=== PATIENT | female | born 1975 | race Caucasian/White ===

== ENCOUNTER → 2023-03-15 09:48 | Outpatient (BNVA) | payer MEDICAID, SELFPAY | PROVIDERS: Referring Provider Nurse Practitioner Family; Visit Provider Physician Assistant | DX: M54.9 Dorsalgia, unspecified (principal); M54.50 Low back pain, unspecified; M79.604 Pain in right leg; M79.605 Pain in left leg | CPT/HCPCS: 72110; 99203 ==

== ENCOUNTER 2023-07-05 12:55 | Outpatient (CLI) | payer MEDICAID, SELFPAY ==
--- NOTE | 2023-07-05 13:02 | MR_ITS ---
WS: [id number] MRI LUMBAR SPINE NONCONTRAST TECHNIQUE: Sagittal T1, T2 and STIR imaging. Axial T1 and T2 imaging. CLINICAL INFORMATION: INCONTINENCE W/O SENSORY AWARENESS/BACK PAIN W/RADICULOPATHY COMPARISON: None. FINDINGS: Counting performed from the craniocervical junction. 4 lumbar type vertebral bodies. L5 is sacralized . Recommend plain film correlation prior to surgical intervention. T12-L1: Moderate facet arthropathy. Spinal canal and foramen are patent. L1-L2: Moderate facet arthropathy. Spinal canal and foramen are patent. L2-L3: Mild annular bulging. Moderate facet arthropathy. Spinal canal and foramen are patent. L3-L4: Mild annular bulging. Moderate facet arthropathy. Mild LEFT greater than RIGHT bony foraminal narrowing. Spinal canal is patent. L4-L5: Mild annular bulge with osteophytic ridging. Moderate facet arthropathy. Mild RIGHT foraminal narrowing. L5-S1: L5 is sacralized. Visualized pelvic bony structures: Normal. Paravertebral soft tissues: Normal. Shallow central protrusion on the frame bender imaging at C5-6. IMPRESSION: 1. Counting performed from the craniocervical junction. 4 lumbar type vertebral bodies. L5 is sacral ized. Recommend plain correlation correlation prior to surgical intervention 2. Moderate facet arthropathy L1-L4 worse at L4-5. 3. Mild RIGHT L4-5 bony foraminal narrowing encroaches on the exiting RIGHT L4 nerve root. 4. Mild LEFT L3-4 foraminal narrowing. 5. Mild narrowing of the thecal sac at L2-L3 and L3-L4 due to facet arthropathy and prominent epidur al fat.
--- NOTE | 2023-07-05 14:07 | MM_ITS ---
WS: [id number] BILATERAL SCREENING DIGITAL TOMOSYNTHESIS MAMMOGRAM WITH CAD HISTORY: SCREENING COMPARISON: None available. Bilateral CC and MLO views with tomosynthesis and synthetic mammography submitted. Computer aided det ection analyzed. Breast composition: There are scattered areas of fibroglandular density. No suspicious masses, microc alcifications or architectural distortion. IMPRESSION: MM/[place] [id number] BI-RADS: 1-Negative FOLLOW UP: 1 Year Follow-up
== END 2023-07-05 12:56 | disposition home or self-care (01) ==
LOC: RAD 12:58
PROVIDERS: Visit Provider Nurse Practitioner Family
DX: M47.26 Other spondylosis with radiculopathy, lumbar region (principal); N39.42 Incontinence without sensory awareness; M54.16 Radiculopathy, lumbar region; Z12.31 Encounter for screening mammogram for malignant neoplasm of breast
CPT/HCPCS: 72148; 77063; 77067

== ENCOUNTER 2023-07-09 13:38 | Emergency (ER) | payer MEDICAID, SELFPAY ==
[2023-07-09 13:45] VITALS: BP 120/76; PULSE 99; RESP 17; TEMP 36.6; O2SAT 97; BMI 39.2
--- NOTE | 2023-07-09 15:36 | ECG_ITS ---
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 Measurements Intervals [place] Rate: 98 P: 60 ND: 158 QRS: -1 QRSD: 90 T: 32 QT: 351 QTc: 449 Interpretive Statements SINUS RHYTHM POSSIBLE LEFT ATRIAL ENLARGEMENT [-0.1mV P-WAVE IN V1/V2] LOW QRS VOLTAGE IN PRECORDIAL LEADS [QRS DEFLECTION < 1.0 mV IN CHEST LEADS] POSSIBLE RIGHT VENTRICULAR CONDUCTION DELAY [RSR (QR) IN V1/V2] POSSIBLE ANTERIOR MYOCARDIAL INFARCTION , PROBABLY OLD [30 ms Q WAVE IN V3/V4, OR R < 0.2 mV IN V4] No previous ECG available for comparison Electronically Signed On 07-09-2023 21:24:34 CDT by Cristiana Willett M.D. [email or web address]
--- NOTE | 2023-07-09 16:02 | XR_ITS ---
WS: [id number] XR chest 1V portable [id number] REASON FOR EXAM: chest pain FINDINGS: No comparison examination. Suboptimal inspiratory effort. Thoracic aorta and heart are within normal limits. No mediastinal or hilar mass. Minimal calcified granulomatous disease bilaterally. Peribronchial cuffing. No definite lung opacity, nodule, or lung mass. No pleural abnormality. The bony thorax is intact without significant focal abnormality. IMPRESSION: Peribronchial cuffing of unknown chronicity. This finding is most often related to small airway disea se and would present as coughing or shortness of breath rather than chest pain. Significance in this patient is uncertain.
[2023-07-09 16:09] LABS: Basophils % 0.2 %; Eosinophils # 0.2 10^3/uL (0.0-0.8); Eosinophils % 1.4 %; Hematocrit 38.4 % (36-47); Lymphocytes # 2.5 10^3/uL (0.8-4.8); Lymphocytes % 22.6 %; Mean Corpuscular HGB Conc 33.3 g/dL (30-55); Mean Corpuscular Hemoglobin 30.9 pg (27-33); Mean Corpuscular Volume 92.8 fl (85-98); Mean Platelet Volume 8.3 fL (7.4-10.4); Monocytes # 0.6 10^3/uL (0.2-0.9); Monocytes % 5.6 %; Neutrophils # 7.74 10^3/uL (1.8-7.7); Neutrophils % 69.9 %; Nucleated Red Blood Cells % 0 %; Platelet Count 268 10^3/cmm (157-399); Red Blood Count 4.14 10^6/uL (3.85-5.65); Red Cell Distribution Width 13.1 % (12.1-15.1); White Blood Count 11.07 10^3/uL (3.29-11.43)
--- NOTE | 2023-07-09 16:09 | W.ED.GENADLT ---
HPI - General Adult General: Chief complaint: Shortness of Breath/Dyspnea Stated complaint: sob, itchy, chest pain Time Seen by Provider: 07/09/23 13:40 Source: patient Mode of arrival: ambulatory Limitations: no limitations History of Present Illness: Patient is a 47-year-old female here for multiple medical complaints. She tells me that she is having chest pain but states I have been having problems with my heart for 4 years . She states approximately 4 years ago she was at a hospital in [place] and told she needed to be hospitalized. Patient states she got anxiety about being admitted and left the emergency department. She states later she was looking at her discharge paperwork and she was given patient instructions regarding congestive heart failure. She states she has never followed up with primary care or weight engineer since that visit. Patient states that she feels swollen everywhere . She denies lower extremity calf pain. She does not complain of PND or orthopnea. She does have shortness of breath with exertion and feels like she fatigues easily. Patient is also complaining of intermittent hot flashes. Unknown when her mother entered menopause. No known thyroid disease. He has not been running fevers. She also has a separate complaint of feeling itchy all over after using a new roll of toilet paper. She never noticed a rash. She states after taking Benadryl all of her pruritus has resolved. Denies lip or tongue swelling. She has no difficulty breathing at rest currently. Onset (ago): unknown (differing chronicity based on complaint) Associated symptoms: Reports chest pain and dyspnea; Deny headache(s), malaise, nausea, rash, palpitations, syncope or vomiting Treatments prior to arrival: other (benadryl) Review of Systems Const: Reports: fatigue and other (hot flashes); Denies: fever(s), chills, body aches or malaise Card: Reports: chest pain, edema (reports she feels swollen everywhere ) and dyspnea on exertion; Denies: palpitations, irregular heart rhythm, lightheadedness, syncope, pre-syncope, orthopnea, leg pain with exertion or acrocyanosis Resp: Reports: dyspnea; Denies: productive cough, non-productive cough, wheezing, pain on inspiration, change in phlegm color, hemoptysis or chest congestion GI: Denies: abdominal pain, nausea, vomiting or diarrhea : Denies: flank pain, dysuria or hematuria Musc: Denies: neck pain, back pain, extremity pain or joint pain Skin/Breast: Reports: pruritus (subsided now after Benadryl); Denies: rash Neuro: Denies: headache(s), numbness in extremities, weakness in extremities, sensory changes, difficulty walking or dizziness Physical Exam Const: COMMON NORMALS: no acute distress, patient oriented x3, no limitations and alert GENERAL APPEARANCE: cooperative NUTRITIONAL APPEARANCE: obese ORIENTATION/CONSCIOUSNESS: Yes awake, Yes oriented to person, Yes oriented to place and Yes oriented to time HENMT: COMMON NORMALS: normocephalic and atraumatic HEAD & SCALP: normal to inspection, normocephalic and atraumatic Eye: COMMON NORMALS: no scleral icterus Neck/C-Spine: COMMON NORMALS: full ROM, no lymphadenopathy, supple, no meningeal signs and no JVD Chest: COMMONS NORMALS: normal inspection of the chest and normal palpation of entire chest wall Resp: COMMON NORMALS: normal respiratory effort and clear to auscultation bilaterally AUSCULTATION: clear to auscultation bilaterally Cardio: COMMON NORMALS: no JVD, regular rate and regular rhythm RATE: regular rate RHYTHM: regular rhythm GI: COMMON NORMALS: Normal to inspection, nondistended, normoactive bowel sounds present, Soft to palpation, non-tender, No hepatosplenomegaly present and no masses PALPATION: Yes Soft to palpation and Yes No hepatosplenomegaly present : COMMON NORMALS: Yes no CVA tenderness BLADDER/KIDNEY EXAM: Yes no CVA tenderness Back/Pelvis: COMMON NORMALS: no CVA tenderness, thoracic and lumbar spine normal to inspection, no thoracic nor lumbar tenderness and thoraco-lumbar ROM normal Extremity: COMMON NORMALS: normal to inspection, full ROM, capillary refill normal, no joint enlargement, no clubbing, cyanosis or edema, no calf tenderness and no pedal edema GENERAL: Yes normal exam except as noted Neuro: MARIE COMA SCALE: document GCS findings [place] coma scale eye opening: Spontaneous [place] coma scale verbal response: Orientated Marie coma scale motor response: Obey commands Marie coma scale total score: 15 COMMON NORMALS: patient oriented x3, moves all extremities, no focal motor deficits, no sensory deficits noted and gait normal SENSORIUM/ORIENTATION: Yes alert, Yes oriented to person, Yes oriented to place and Yes oriented to time MENINGEAL SIGNS: Yes no meningeal signs Skin: COMMON NORMALS: no rashes or lesions noted GENERAL SKIN EXAM: no rashes or lesions noted Course Vital Signs: Vital signs: Vital Signs Temperature 98 F 07/09/23 13:45 Pulse Rate 99 07/09/23 13:45 Respiratory Rate 17 07/09/23 13:45 Blood Pressure 120/76 07/09/23 13:45 Pulse Oximetry 97 07/09/23 13:45 Oxygen Delivery Me thod Room Air 07/09/23 13:45 MDM - General Adult Medical Decision Making Patient here with multiple medical complaints of differing chronicities. She states her chest pain has been present for over 4 years. Her shortness of breath and fatigue has been present for several months as well as her hot flashes. Ultimately she arrives with completely normal vital signs. Her blood work overall is unremarkable. She has mild hypokalemia with a potassium of 3.3. Calcium is mildly low at 8.1. Her troponin is normal. Her EKG shows no ischemic changes. BNP ordered due to her possible PMH of CHF and feeling like she is swollen. It was mildly elevated at 189. Her CXR showing no evidence of fluid overload. It does show some small airway disease. Patient states she does use albuterol and would like a refill of this. TSH is normal. At this time I think patient is stable for discharge from an emergency standpoint. Recommend she follow-up with her primary care provider for further evaluation and treatment. Lab Data 07/09/23 15:50 07/09/23 15:50 Laboratory Results WBC 11.07 10^3/uL (3.29-11.43) 07/09/23 15:50 RBC 4.14 10^6/uL (3.85-5.65) 07/09/23 15:50 Hgb 12.80 g/dL (11.27-16.99) 07/09/23 15:50 Hct 38.4 % (36-47) 07/09/23 15:50 MCV 92.8 fl (85-98) 07/09/23 15:50 MCH 30.9 pg (27-33) 07/09/23 15:50 MCHC 33.3 g/dL (30-55) 07/09/23 15:50 RDW 13.1 % (12.1-15.1) 07/09/23 15:50 Plt Count 268 10^3/cmm (157-399) 07/09/23 15:50 MPV 8.3 fL (7.4-10.4) 07/09/23 15:50 Neut % (Auto) 69.9 % 07/09/23 15:50 Lymph % (Auto) 22.6 % 07/09/23 15:50 [facility] % (Auto) 5.6 % 07/09/23 15:50 Eos % (Auto) 1.4 % 07/09/23 15:50 Baso % (Auto) 0.2 % 07/09/23 15:50 Neut # (Auto) 7.74 10^3/uL (1.8-7.7) H 07/09/23 15:50 Lymph # (Auto) 2.5 10^3/uL (0.8-4.8) 07/09/23 15:50 [facility] # (Auto) 0.6 10^3/uL (0.2-0.9) 07/09/23 15:50 Eos # (Auto) 0.2 10^3/uL (0.0-0.8) 07/09/23 15:50 Baso # (Auto) 0.0 10^3/uL (0.0-0.1) 07/09/23 15:50 Nucleated RBC % (auto) 0 % 07/09/23 15:50 Nucleated RBCs # 0.0 /100WBC 07/09/23 15:50 Sodium 137 mmol/L (136-145) 07/09/23 15:50 Potassium 3.3 mmol/L (3.5-5.1) L 07/09/23 15:50 Chloride 103 mmol/L (98-107) 07/09/23 15:50 Carbon Dioxide 27 mmol/L (22-29) 07/09/23 15:50 Anion Gap 10.3 (5-19) 07/09/23 15:50 BUN 13 mg/dL (6-20) 07/09/23 15:50 Creatinine 0.6 mg/dL (0.5-0.9) 07/09/23 15:50 GFR Calculation 108.1 mL/min (90-130) 07/09/23 15:50 Glucose 85 mg/dL (65-115) 07/09/23 15:50 Calculated Osmolality 283 mOsm/kg (285-295) L 07/09/23 15:50 Calcium 8.1 mg/dL (8.5-10.5) L 07/09/23 15:50 Total Bilirubin 0.3 mg/dL (0.15-1.2) 07/09/23 15:50 AST 19 U/L (0-32) 07/09/23 15:50 ALT 16 U/L (0-33) 07/09/23 15:50 Alkaline Phosphatase 136 U/L (35-105) H 07/09/23 15:50 Troponin T Gen 5 ng/L 6 ng/L (0-10) 07/09/23 15:50 NT-Pro-B Natriuret Pep 189 pg/mL (0-125) H 07/09/23 15:50 Total Protein 5.8 g/dL (6.6-8.7) L 07/09/23 15:50 Albumin 3.7 g/dL (3.5-5.2) 07/09/23 15:50 Globulin 2.1 g/dL (1.3-4.6) 07/09/23 15:50 TSH 0.81 uIU/mL (0.27-4.20) 07/09/23 15:50 All radiology interpretation(s) finalized by discharge Discharge Plan Discharge Patient Disposition: Home Clinical Impression: Multiple complaints, Hypokalemia, Chronic chest pain Dyspnea Qualifiers: Dyspnea type: dyspnea on exertion Qualified Code(s): R06.09 - Other forms of dyspnea Condition: Stable Prescriptions: Continued albuterol sulfate 90 mcg/actuation HFA aerosol inhaler 1 inh INHALATION Q6H PRN (Reason: Shortness Of Breath) Qty: 6.7 0RF No Action prazosin 1 mg capsule See Rx Instructions .ROUTE .COMPLEX Rx Instructions: TAKE 1 CAPSULE BY MOUTH AT BEDTIME, MAY INCREASE TO 2 CAPSULES IN 1 WEEK IF not dizzy lamotrigine 25 mg tablet See Rx Instructions .ROUTE .COMPLEX Rx Instructions: TAKE 1 TABLET BY MOUTH EVERY DAY FOR 2 WEEKS, THEN TAKE 2 TABLETS BY MOUTH EVERY DAY FOR 2 WEEKS propranolol 10 mg tablet 10 mg PO BID baclofen 10 mg tablet 10 mg PO BID triamcinolone acetonide 0.1 % ointment See Rx Instructions .ROUTE .COMPLEX Rx Instructions: APPLY A SMALL AMOUNT TO AFFECTED AREA TWICE A DAY FOR 2 WEEKS AT A TIME, THEN STOP FOR 2 WEEKS risperidone 0.5 mg tablet 0.5 mg PO BID PRN (Reason: Panic Attack(S)) Discharge Orders: Discharge ED (Routine); Ordered 07/09/23 Ordered By: Francisca Estevez Referrals: Alecia Rae [Primary Care Provider] - Activity Restrictions/Additional Instructions: As we discussed please follow-up with your primary care provider for further evaluation of your symptoms. Coding Level of Care Code ED Diamond Setter for Charis Ferrera
[2023-07-09 16:32] LABS: Troponin T (5th) Once 6 ng/L (0-10)
[2023-07-09 16:42] LABS: Alanine Aminotransferase 16 U/L (0-33); Albumin Level 3.7 g/dL (3.5-5.2); Alkaline Phosphatase 136 U/L (35-105); Anion Gap 10.3 (5-19); Aspartate Amino Transferase 19 U/L (0-32); Blood Urea Nitrogen 13 mg/dL (6-20); Calcium 8.1 mg/dL (8.5-10.5); Carbon Dioxide 27 mmol/L (22-29); Chloride 103 mmol/L (98-107); Globulin 2.1 g/dL (1.3-4.6); Glomerular Filtration Rate 108.1 mL/min (90-130); Glucose 85 mg/dL (65-115); NT Pro B Type Natriuretic Pept 189 pg/mL (0-125); Osmolality Calculated 283 mOsm/kg (285-295); Potassium 3.3 mmol/L (3.5-5.1); Sodium 137 mmol/L (136-145); Thyroid Stimulating Hormone 0.81 uIU/mL (0.27-4.20); Total Bilirubin 0.3 mg/dL (0.15-1.2); Total Protein 5.8 g/dL (6.6-8.7)
[2023-07-09] MEDS: potassium chloride ER 20 mEq Tablet 40 MEQ PO (17:02)
[2023-07-09 17:06] VITALS: BP 113/82; PULSE 96; O2SAT 98
== END 2023-07-09 17:04 | disposition home or self-care (01) ==
PROVIDERS: Emergency Provider Physician Assistant; PCP Emergency Medicine
DX: G89.29 Other chronic pain (principal); R07.9 Chest pain, unspecified; R06.09 Other forms of dyspnea
CPT/HCPCS: 71045; 80053; 83880; 84443; 84484; 85025; 93005; 99285

== ENCOUNTER 2023-10-30 13:20 | Outpatient (CLI) | payer MEDICAID, SELFPAY ==
--- NOTE | 2023-10-30 13:30 | USCV_ITS ---
Galo Yulia Age: 48 Gender: F : 1975 Exam Date: 10/30/2023 14:08 Ordering Phys: Lisandra Rae TRAIN EXAMINER TRAIN EXAMINER Technologist: Socorro Martínez Exam Location: [facility] – [place] Indication: dyspnea BP: / HR: 89 Rhythm: Sinus Technical Quality: Adequate MEASUREMENTS (Male / Female) Normal Values 2D ECHO LV Diastolic Diameter PLAX 4.2 cm 4.2 - 5.9 / 3.9 - 5.3 cm LV Systolic Diameter PLAX 2.3 cm LV Chamber Size 2.9 cm IVS Diastolic Thickness 0.8 cm 0.6 - 1.0 / 0.6 - 0.9 cm IVS Systolic Thickness 1.5 cm LVPW Diastolic Thickness 1.2 cm 0.6 - 1.0 / 0.6 - 0.9 cm LVPW Systolic Thickness 1.6 cm RV Chamber Size 3.4 cm LVOT Diameter 2.0 cm LV Ejection Fraction 2D Teich 78.0 % LV Ejection Fraction MOD 2C 53.1 % LV Ejection Fraction 2C AL 52.9 % LA Diameter 3.0 cm LA Width 2.7 cm LA Height 4.3 cm RA Width 3.4 cm RA Height 3.8 cm Aorta at Sinotubular Diameter 2.8 cm IVC Diameter 1.6 cm M-MODE Aortic Annulus Diameter 2.8 cm LA Ao Ratio MM 1.4 MV E Point Septal Separation 0.3 cm DOPPLER AV Peak Velocity 131.7 cm/s LVOT Peak Velocity 80.0 cm/s AV Area Cont Eq vti 2.1 cm squared AV Area Cont Eq pk 2.0 cm squared MV Area PHT 4.9 cm squared Mitral E to A Ratio 1.1 MV E' Velocity 43.5 cm/s Mitral E to MV E' Ratio 7.3 Mitral E to LV E' Lateral Ratio 6.9 Mitral E to LV E' Septal Ratio 8.0 TR Peak Velocity 207.1 cm/s TR Peak Gradient 17.2 mmHg TR Mean Velocity 140.5 cm/s TR Mean Gradient 9.5 mmHg TR Velocity Time Integral 43.7 cm TV Peak E Velocity 67.0 cm/s Right Atrial Pressure 3.0 mmHg Pulmonary Artery Systolic Pressu 20.2 mmHg RV Acceleration Time 0.2 s RV Ejection Time 0.3 s RV AcT/ET 0.6 FINDINGS Left Ventricle Left ventricle is normal size. LV systolic function is normal with EF of 60 to 65%. No regional wall motion abnormalities are seen. Right Ventricle Normal in size and function Right Atrium Normal in size Left Atrium Normal in size Mitral Valve Structurally normal valve. Mild mitral regurgitation. Aortic Valve Structurally normal aortic valve. No significant stenosis or regurgitation. Tricuspid Valve Trace tricuspid regurgitation. Pulmonary artery systolic pressure is normal. Pulmonic Valve Not well visualized. Pericardium Normal Aorta Normal in size IVC Appears to be normal CONCLUSIONS LV systolic function is normal with EF of 60 to 65%. Mild mitral regurgitation Trace tricuspid regurgitation No comparison studies are available. Danny Johnson MD (Electronically Signed) Final Date: 14 November 2023 17:27 S
== END 2023-10-30 13:21 | disposition home or self-care (01) ==
LOC: RAD 13:20
PROVIDERS: PCP Emergency Medicine; Visit Provider Nurse Practitioner Family
DX: R06.00 Dyspnea, unspecified (principal); I34.0 Nonrheumatic mitral (valve) insufficiency
CPT/HCPCS: 93306

== ENCOUNTER 2023-11-07 11:29 | Outpatient (CLI) | payer MEDICAID, SELFPAY ==
[2023-11-07 11:39] VITALS: PULSE 115; RESP 20; O2SAT 99
[2023-11-07] MEDS: albuterol 2.5 mg/3 mL Neb INHALATION (11:39)
[2023-11-07 11:43] VITALS: PULSE 110
== END 2023-11-07 11:30 | disposition home or self-care (01) ==
LOC: RT 11:30
PROVIDERS: PCP Emergency Medicine; Visit Provider Nurse Practitioner Family
DX: R06.09 Other forms of dyspnea (principal); Z72.0 Tobacco use; R94.2 Abnormal results of pulmonary function studies
CPT/HCPCS: 94060; J7613

== ENCOUNTER 2024-01-10 17:20 | Emergency (ER) | payer MEDICAID, SELFPAY ==
[2024-01-10 17:36] VITALS: BP 96/61; PULSE 97; RESP 18; TEMP 36.2; O2SAT 99
[2024-01-10 18:55] LABS: Basophils # 0.1 10^3/uL (0.0-0.1); Basophils % 0.5 %; Eosinophils # 0.2 10^3/uL (0.0-0.8); Eosinophils % 2.1 %; Hematocrit 44.8 % (36-47); Lymphocytes # 4.1 10^3/uL (0.8-4.8); Lymphocytes % 39.9 %; Mean Corpuscular HGB Conc 32.8 g/dL (30-55); Mean Corpuscular Hemoglobin 30.8 pg (27-33); Mean Corpuscular Volume 93.7 fl (85-98); Mean Platelet Volume 8.1 fL (7.4-10.4); Monocytes # 0.8 10^3/uL (0.2-0.9); Monocytes % 7.7 %; Neutrophils # 5.04 10^3/uL (1.8-7.7); Neutrophils % 49.4 %; Nucleated Red Blood Cells % 0 %; Platelet Count 307 10^3/cmm (157-399); Red Blood Count 4.78 10^6/uL (3.85-5.65); Red Cell Distribution Width 13.1 % (12.1-15.1)
[2024-01-10 19:14] LABS: Alanine Aminotransferase 20 U/L (0-33); Albumin Level 4.2 g/dL (3.5-5.2); Alkaline Phosphatase 148 U/L (35-105); Aspartate Amino Transferase 18 U/L (0-32); Blood Urea Nitrogen 10 mg/dL (6-20); Calcium 8.7 mg/dL (8.5-10.5); Carbon Dioxide 26 mmol/L (22-29); Chloride 103 mmol/L (98-107); Creatinine Clr Calc Pharmacy 107.3082; Globulin 2.7 g/dL (1.3-4.6); Glomerular Filtration Rate 90.1 mL/min (90-130); Glucose 73 mg/dL (65-115); Lipase 21 U/L (13-60); Osmolality Calculated 284 mOsm/kg (285-295); Sodium 138 mmol/L (136-145); Total Bilirubin 0.8 mg/dL (0.15-1.2); Total Protein 6.9 g/dL (6.6-8.7)
--- NOTE | 2024-01-10 20:25 | W.ED.ABDPA2 ---
HPI - Abdominal Pain General: Chief Complaint: Abdominal Pain Stated Complaint: abp pain Time Seen by Provider: 01/10/24 20:23 History of Present Illness: 48-year-old female presents emergency department with complaints of upper abdominal tightness has been ongoing for the previous 3 days. She states her pain is a vague cramping type pain that is a 10 out of 10. She states she feels like she is constantly nauseated and has had 2 episodes of vomiting and some intermittent diarrhea. She states she was recently completed antibiotic regimen for pneumonia. She denies any previous abdominal surgeries. She states that nothing seems to make her pain better and eating makes her pain worse. Associated Symptoms: Reports nausea and vomiting Related Data: Date of Last Menstrual Period: 11/07/23 Review of Systems General: Reports: 10 or more systems reviewed and unremarkable except in HPI and below GI: Reports: abdominal pain, nausea and vomiting [facility] ED PFS: Medical History (Updated 01/10/24 @ 22:40 by Rajiv Rudd MD) SOB (shortness of breath) Chest pain Bipolar 1 disorder Depression Family History Grandmother Congenital heart disease Father CAD (coronary artery disease) Social History Smoking and tobacco/nicotine status: current some day tobacco/nicotine user cigarettes Packs smoked per day: 0.5 Years cigarettes smoked: 25 Alcohol intake: current Alcohol intake frequency: 0-2 Drinks per Day Substance/Drug Use: current Female Reproductive History: Date of last menstrual period: 11/07/23 Physical Exam Narrative: EXAM NARRATIVE: Constitutional: the patient appears well nourished and of normal development. Vital signs as documented. No acute distress at present. Alert and oriented-to person, place, time and situation. Head, eyes, ears, nose, mouth, throat: Normocephalic, atraumatic. Pupils-equal, round, reactive to light. No scleral icterus. Normal-appearing external ears. Normal appearing nasal turbinates, no drainage. No obvious oral lesions, posterior oropharynx without erythema or exudates. Neck: Supple, trachea is midline, no lymphadenopathy, no jugular venous distension, thyromegaly, or carotid bruits. Carotid upstrokes are brisk bilaterally. Lungs: clear to auscultation to all lung haile. Symmetrical rise and fall of chest, no obvious signs of increased work of breathing at present. Cardiac: Regular rate and rhythm, positive S1, S2. No murmurs, rubs or gallops that I can appreciate Abdomen: Soft, non-tender to palpation, normal active bowel sounds to all quadrants. No palpable masses, no organomegaly and abdominal bruits. Extremities: 2+ pulses in the upper extremities that are equal bilaterally, 2+ pulses in the lower extremities that are equal bilaterally. Non-edematous. Moves all extremities well, sensation to all extremities are noted. Skin: Warm, dry, intact. Course Vital Signs: Vital signs: Vital Signs Temperature 97.2 F L 01/10/24 17:36 Pulse Rate 97 01/10/24 17:36 Respiratory Rate 18 01/10/24 17:36 Blood Pressure 96/61 01/10/24 17:36 Pulse Oximetry 99 01/10/24 17:36 Oxygen Delivery Me thod Room Air 01/10/24 17:36 MDM - Abdominal Pain Medical Decision Making Physical exam completed and documented, I will obtain a CBC and CMP as well as a CT scan of her abdomen pelvis given the patient's additional complaints of pain in the epigastric region. I will provide her Toradol and pain medication as well as antinausea medication and obtain a urinalysis. Reevaluation of the patient received her pain medication shows significant improvement in control of her pain. I did discuss the CT scan findings with her to include enteritis. I discussed supportive care and treatment as well as recommended follow-up with her PCP. Medical Records I reviewed the patient's medical records. Lab Data I reviewed the patient's lab results. 01/10/24 18:33 01/10/24 18:33 Labs/Radiology: Radiology Impressions Abdomen/Pelvis CT 01/10/24 21:39 IMPRESSION: 1. Prominent fluid in the small bowel without dilation may reflect an enteritis. 2. Right middle lobe 6.6 mm pulmonary nodule incompletely visualized, dedicated chest CT advised for further evaluation. 3. IUD in the uterine cavity. 4. Diverticulosis without diverticulitis. 5. Right ovary 2.2 cm cyst, likely follicular. Laboratory Results WBC 10.20 10^3/uL (3.29-11.43) 01/10/24 18:33 RBC 4.78 10^6/uL (3.85-5.65) 01/10/24 18: Hgb 14.70 g/dL (11.27-16.99) 01/10/24 18: Hct 44.8 % (36-47) 01/10/24 18: MCV 93.7 fl (85-98) 01/10/24 18: MCH 30.8 pg (27-33) 01/10/24 18: MCHC 32.8 g/dL (30-55) 01/10/24 18: RDW 13.1 % (12.1-15.1) 01/10/24 18: Plt Count 307 10^3/cmm (157-399) 01/10/24 18: MPV 8.1 fL (7.4-10.4) 01/10/24 18: Neut % (Auto) 49.4 % 01/10/24 18: Lymph % (Auto) 39.9 % 01/10/24 18: Imperial % (Auto) 7.7 % 01/10/24 18: Eos % (Auto) 2.1 % 01/10/24 18: Baso % (Auto) 0.5 % 01/10/24: Neut # (Auto) 5.04 10^3/uL (1.8-7.7) 01/10/24 18: Lymph # (Auto) 4.1 10^3/uL (0.8-4.8) 01/10/24 18: Imperial # (Auto) 0.8 10^3/uL (0.2-0.9) 01/10/24 18: Eos # (Auto) 0.2 10^3/uL (0.0-0.8) 01/10/24 18: Baso # (Auto) 0.1 10^3/uL (0.0-0.1) 01/10/24: Nucleated RBC % (auto) 0 % 01/10/24 18: Nucleated RBCs # 0.0 /100WBC 01/10/24 18: Sodium 138 mmol/L (136-145) 01/10/24 18: Potassium 4.0 mmol/L (3.5-5.1) 01/10/24 18:33 Chloride 103 mmol/L (98-107) 01/10/24 18:33 Carbon Dioxide 26 mmol/L (22-29) 01/10/24 18:33 Anion Gap 13.0 (5-19) 01/10/24 18:33 BUN 10 mg/dL (6-20) 01/10/24 18:33 Creatinine 0.7 mg/dL (0.5-0.9) 01/10/24 18:33 GFR Calculation 90.1 mL/min (90-130) 01/10/24 18:33 Glucose 73 mg/dL (65-115) 01/10/24 18:33 Calculated Osmolality 284 mOsm/kg (285-295) L 01/10/24 18:33 Calcium 8.7 mg/dL (8.5-10.5) 01/10/24 18:33 Total Bilirubin 0.8 mg/dL (0.15-1.2) 01/10/24 18:33 AST 18 U/L (0-32) 01/10/24 18:33 ALT 20 U/L (0-33) 01/10/24 18:33 Alkaline Phosphatase 148 U/L (35-105) H 01/10/24 18:33 Total Protein 6.9 g/dL (6.6-8.7) 01/10/24 18:33 Albumin 4.2 g/dL (3.5-5.2) 01/10/24 18:33 Globulin 2.7 g/dL (1.3-4.6) 01/10/24 18:33 Lipase 21 U/L (13-60) 01/10/24 18:33 HCG, Qual Negative (Negative) 01/10/24 20:20 Urine Color Light yellow (Yellow) 01/10/24 20:20 Urine Appearance Sl hazy (CLEAR) A 01/10/24 20:20 Urine pH 5 (5-7) 01/10/24 20:20 Ur Specific [place] 1.005 (1.005-1.030) 01/10/24 20:20 Urine Protein Neg (Negative) 01/10/24 20:20 Urine Glucose (UA) Norm (Normal) 01/10/24 20:20 Urine Ketones Negative (Negative) 01/10/24 20:20 Urine Blood Neg (Negative) 01/10/24 20:20 Urine Nitrate Negative (Negative) 01/10/24 20:20 Urine Bilirubin Neg (Negative) 01/10/24 20:20 Urine Urobilinogen Neg mg/dL (Negative) 01/10/24 20:20 Ur Leukocyte Esterase Negative (Negative) 01/10/24 20:20 Urine RBC None /hpf (0-2) 01/10/24 20:20 Urine WBC 0-4 /hpf (0-5) H 01/10/24 20:20 Ur Squamous Epith Cells 5-10 /hpf (0-5) H 01/10/24 20:20 Amorphous Sediment Not Reportable 01/10/24 20:20 Urine Bacteria Trace /hpf (NONE) 01/10/24 20:20 All radiology interpretation(s) finalized by discharge Discharge Plan Discharge Patient Disposition: Home Clinical Impression: Gastroenteritis, Abdominal pain Condition: Stable Prescriptions: New naproxen 500 mg tablet 500 mg PO Q12H PRN (Reason: pain) Qty: 20 0RF simethicone 180 mg capsule 180 mg PO BID PRN (Reason: abdominal distention) Qty: 14 0RF No Action prazosin 1 mg capsule See Rx Instructions .ROUTE .COMPLEX Rx Instructions: TAKE 1 CAPSULE BY MOUTH AT BEDTIME, MAY INCREASE TO 2 CAPSULES IN 1 WEEK IF not dizzy lamotrigine 25 mg tablet See Rx Instructions .ROUTE .COMPLEX Rx Instructions: TAKE 1 TABLET BY MOUTH EVERY DAY FOR 2 WEEKS, THEN TAKE 2 TABLETS BY MOUTH EVERY DAY FOR 2 WEEKS propranolol 10 mg tablet 10 mg PO BID baclofen 10 mg tablet 10 mg PO BID albuterol sulfate 90 mcg/actuation HFA aerosol inhaler 1 inh INHALATION Q6H PRN (Reason: Shortness Of Breath) Qty: 6.7 0RF Discharge Orders: Discharge ED (Routine); Ordered 01/10/24 Ordered By: Rajiv Rudd Referrals: Lisandra Rae FNP [Primary Care Provider] - Discharge Diet: Advance as tolerated Discharge Activity: Resume usual activity Patient Instructions: Abdominal Pain (ED), Opioid Safety, Pain Management Activity Restrictions/Additional Instructions: Activity Restrictions/Additional Instructions: Thank you for choosing [facility] for your healthcare needs today. Please realize that you were seen in the Emergency Department and that we are providing you with an emergency medical screening exam and this may not be a complete and all inclusive of all the testing and or medical work-up that you may need to determine your ailment or severity of your illness. It is very important that you follow-up as instructed with your Primary care provider or Specialist for additional evaluation and to discuss your medical treatment plan. Coding Level of Care Code ED Thread Pulling Machine Attendant for Charis Ferrera
[2024-01-10 20:30] LABS: HCG Qualitative Urine. Negative (Negative)
[2024-01-10 20:36] LABS: Add Urine Microscopic? YES; Bilirubin Urine Neg (Negative); Blood Urine Neg (Negative); Glucose Urine UA Norm (Normal); Ketones Urine Negative (Negative); Leukocyte Esterase Urine Negative (Negative); Nitrate Urine Negative (Negative); Protein Urine Neg (Negative); Specific Gravity, Urine 1.005 (1.005-1.030); Urine Appearance SL Hazy (CLEAR); Urine Color Light yellow (Yellow); Urobilinogen Urine Neg (Negative); WBC Urine 0-4 /hpf (0-5); pH Urine 5 (5-7)
[2024-01-10 20:37] LABS: Add Urine Culture? No; Bacteria Urine TRACE /hpf
--- NOTE | 2024-01-10 20:54 | PC.NURSE ---
Updated receiving nurse that patient was en route to facility via [facility].
--- NOTE | 2024-01-10 21:39 | CTR_ITS ---
PROCEDURE INFORMATION: Exam: CT Abdomen And Pelvis With Contrast Exam date and time: 01/10/2024 9:46 PM Age: 48 years old Clinical indication: Abdominal pain; Localized; Left upper quadrant (luq); Additional info: Abd pain TECHNIQUE: Imaging protocol: Computed tomography of the abdomen and pelvis with contrast. Radiation optimization: All CT scans at this facility use at least one of these dose optimization techniques: automated exposure control; mA and/or kV adjustment per patient size (includes targeted exams where dose is matched to clinical indication); or iterative reconstruction. Contrast material: OMNI 350; Contrast volume: 100 ml; Contrast route: INTRAVENOUS (IV); COMPARISON: CR XR chest 1V portable [id number] 07/09/2023 4:08 PM RADIATION DOSE METRICS: Total DLP (mGy-cm): 1109 FINDINGS: Lungs: Right middle lobe 6.6 mm pulmonary nodule incompletely visualized, dedicated chest CT advised for further evaluation. Liver: Normal. No mass. Gallbladder and bile ducts: Normal. No calcified stones. No ductal dilation. Pancreas: Normal. No ductal dilation. Spleen: Normal. No splenomegaly. Adrenal glands: Normal. No mass. Kidneys and ureters: Normal. No hydronephrosis. Stomach and bowel: Prominent fluid in the small bowel without dilation may reflect an enteritis. Diverticulosis without diverticulitis. Appendix: No evidence of appendicitis. Intraperitoneal space: Unremarkable. No free air. No significant fluid collection. Vasculature: Unremarkable. No abdominal aortic aneurysm. Lymph nodes: Unremarkable. No enlarged lymph nodes. Urinary bladder: Unremarkable as visualized. Reproductive: IUD in the uterine cavity. Right ovary 2.2 cm cyst, likely follicular. Bones/joints: Unremarkable. No acute fracture. Soft tissues: Unremarkable. CT/CT abdomen pelvis w con* [id number] IMPRESSION: 1. Prominent fluid in the small bowel without dilation may reflect an enteritis. 2. Right middle lobe 6.6 mm pulmonary nodule incompletely visualized, dedicated chest CT advised for further evaluation. 3. IUD in the uterine cavity. 4. Diverticulosis without diverticulitis. 5. Right ovary 2.2 cm cyst, likely follicular.
[2024-01-10] MEDS: iohexol 350 mg/mL 500 mL Btl (per mL) IV (21:43)
[2024-01-10] MEDS: ketorolac 30 mg/mL INJ IVP (22:08)
[2024-01-10] MEDS: ondansetron 2 mg/ML SDV 2 mL 4 MG IVP (22:09)
== END 2024-01-10 23:08 | disposition home or self-care (01) ==
PROVIDERS: Emergency Provider Internal Medicine; PCP Nurse Practitioner Family
DX: K52.9 Noninfective gastroenteritis and colitis, unspecified (principal); F17.210 Nicotine dependence, cigarettes, uncomplicated
CPT/HCPCS: 36415; 74177; 80053; 81001; 81025; 83690; 85025; 96374; 96375; 99285; J1885; J2405; Q9967

== ENCOUNTER 2024-01-15 16:00 | Outpatient (CLI) | payer MEDICAID, SELFPAY ==
--- NOTE | 2024-01-15 16:14 | CT_ITS ---
WS: [id number] CT chest w con* [id number] HISTORY: Restrictive lung disease TECHNIQUE: Axial imaging performed through the thorax. Coronal and sagittal reformats are submitted. All CT scans at [facility] use at least one of these dose optimization techniques: automated exposure control; mA and/or kV adjustment per patient size (includes targeted exams where dose is mat ched to clinical indication); or iterative reconstruction. CONTRAST: Omnipaque 350; 100 mL IV. DLP: 605.32 mGy.cm COMPARISON: 01/10/2024 Lungs and central airway: Normally aerated lungs. There is mild diffuse interstitial thickening in th e periphery which may be related to the smoking history. There are 2 noncalcified 6 mm nodules along the RIGHT minor fissure. 1 of these nodules extends toward the RIGHT middle lobe and one nodule exten ds into the RIGHT upper lobe. Additional 3 mm perifissural nodule along the superior RIGHT major fiss ure. No mass. Pleura: Normal. No pleural effusion. Heart and pericardium: Normal size heart with no pericardial effusion. Mediastinum and madalyn: No mediastinum or hilar adenopathy. Vessels: Normal size aortic and pulmonary artery. No coronary artery calcifications. Chest wall and lower neck: No soft tissue masses. Upper abdomen: Very small hiatal hernia. Osseous structures: Very slight increase in the thoracic kyphosis. No osseous destruction. IMPRESSION: 1. RIGHT perifissural nodules. These are typically benign. No suspicious pulmonary mass or pneumonia . 2. Mild interstitial thickening probably related to smoking history. Consider respiratory bronchioli tis. 3. No mediastinal or hilar adenopathy.
[2024-01-15] MEDS: iohexol 350 mg/mL 500 mL Btl (per mL) IV (16:46)
== END 2024-01-15 16:01 | disposition home or self-care (01) ==
LOC: RAD 16:00
PROVIDERS: PCP Nurse Practitioner Family; Visit Provider Nurse Practitioner Family
DX: J98.4 Other disorders of lung (principal); R91.8 Other nonspecific abnormal finding of lung field; Z87.891 Personal history of nicotine dependence
CPT/HCPCS: 71260; Q9967

== ENCOUNTER 2024-01-16 07:56 | Outpatient (CLI) | payer MEDICAID, SELFPAY ==
--- NOTE | 2024-01-16 | ECG_ITS ---
[facility] Test Date: 2024-01-16 Pat Name: Yulia Rosenthal Department: Room: Gender: Female Food Vendor: : 1975 Requested By: Osiel Haas Order Number: [id number] Chen MD: Danny Johnson M.D. Interpretive Statements NAME OF STUDY: LEXISCAN SESTAMIBI STRESS TEST INDICATION: [Chest Pain] Procedure: At the baseline, the blood pressure was 95/57 mmHg with a heart rate of 75 bpm. The electrocardiogram showed normal sinus rhythm, normal axis with normal ST and T's. The Lexiscan was infused over a period of 20 seconds. A total of 0.4 mg of Lexiscan was infused. The stress phase was continued for a total of 5 minutes. Heart rate was at the end of stress phase was 104 bpm and a blood pressure of 106/67 mmHg. The EKG at the peak infusion revealed normal sinus rhythm with no significant ST-T wave changes. Sestamibi was injected 20 seconds after the Lexiscan infusion. Blood pressure at the end of recovery phase was 104/68 mmHg with a heart rate of 102 bpm. Conclusion: 1. Normal EKG response to Lexiscan infusion 2. No Lexiscan induced chest pain or cardiac arrhythmia. 3. Normal blood pressure and heart rate response. 4. Sestamibi/sestamibi perfusion scan pending; see separate report. Electronically Signed On 01-24-2024 12:16:25 CDT by Danny Johnson M.D. [email or web address]
[2024-01-16 08:21] VITALS: BMI 41.5
--- NOTE | 2024-01-16 08:27 | NMCV_ITS ---
NM manisha perf SPECT r/s* [id number] Yulia Rosenthal Age: 48 Gender: F : 1975 Exam Date: 01/16/2024 09:00 Ordering Phys: Osiel Haas MD ([email or web address]) Technologist: MER Paez Exam Location: [facility] Indications: CHEST PAIN STRESS TEST Please see separate stress test report in [facility] for full findings IMAGE PROTOCOL Rest/Stress 1 Lexiscan Day Radiopharmaceutical Dose (mCi) Administration Site Administered by Rest: Tc-99m 11.0 IV MER Paez Sestamibi Stress:Tc-99m 32.8 IV MER Paez Sestamibi Rest: 16-Jan-2024 60 Discovery 630 Stress: 16-Jan-2024 30 Discovery 630 0.4mg Lexiscan. Images obtained in supine and prone position. SPECT RESULTS Technical Quality: Good Raw Data Analysis: Breast attenuation Image Corrections: No attenuation or motion correction applied Summed Stress Score: 1 Summed Rest Score: 2 Summed Difference Score: 0 PERFUSION FINDINGS Small area of mild intensity, partially reversible perfusion defect noted in the apical lateral wall. This is consistent with small area of prior infarct with minimal parul-infarct ischemia in the left circumflex artery territory. FUNCTIONAL RESULTS (calculated via Gated SPECT) Stress Image LV EF (%): 70 Stress EDV (mL):57 TID: 1.14 Stress ESV (mL):17 FUNCTIONAL FINDINGS: There is normal left ventricular systolic function. IMPRESSIONS 1. 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 2. LV systolic function is normal. Danny Johnson MD (Electronically Signed) Final Date: 19 January 2024 07:33 S
[2024-01-16] MEDS: regadenoson 0.4 Mg/5 ml Syringe 0.400000000000000022 MG IVP (10:20)
[2024-01-16 10:47] VITALS: PULSE 104
== END 2024-01-16 07:57 | disposition home or self-care (01) ==
PROVIDERS: PCP Nurse Practitioner Family; Visit Provider Internal Medicine Cardiovascular Disease
DX: R07.9 Chest pain, unspecified (principal)
CPT/HCPCS: 36415; 78452; 93017; 96374; A9500; J2785

== ENCOUNTER → 2024-01-29 13:49 | Outpatient (BNVA) | payer MEDICAID, SELFPAY | PROVIDERS: PCP Nurse Practitioner Family; Visit Provider Orthopaedic Surgery | DX: M54.50 Low back pain, unspecified (principal); M79.604 Pain in right leg; M79.605 Pain in left leg; M48.062 Spinal stenosis, lumbar region with neurogenic claudication | CPT/HCPCS: 36415; 72110; 80053; 81001; 85025 ==

== ENCOUNTER 2024-02-08 11:23 | Outpatient (CLI) | payer MEDICAID, SELFPAY ==
--- NOTE | 2024-02-08 11:41 | CT_ITS ---
WS: [id number] CT chest w con* [id number] HISTORY: LUNG NODULE/ABNORMAL FINDINGS TECHNIQUE: Axial imaging performed through the thorax. Coronal and sagittal reformats are submitted. All CT scans at [facility] use at least one of these dose optimization techniques: automated exposure control; mA and/or kV adjustment per patient size (includes targeted exams where dose is mat ched to clinical indication); or iterative reconstruction. CONTRAST: Omnipaque 350; 100 mL IV. DLP: 564.44 mGy.cm COMPARISON: 01/15/2024 Lungs and central airway: Mild pulmonary hyperinflation. Mild interstitial thickening is probably rel ated to smoking history. Several pulmonary nodules are identified. These are subcentimeter. Largest n odule 5 mm along the RIGHT fissures. No pneumonia. Pleura: Normal. No pleural effusion. Heart and pericardium: Normal size heart with no pericardial effusion. Mediastinum and madalyn: No mediastinum or hilar adenopathy. Vessels: Normal size aortic and pulmonary artery. No coronary artery calcifications. Chest wall and lower neck: No soft tissue masses. Upper abdomen: Small hiatal hernia. Visualized liver is negative. Osseous structures: No destructive process. IMPRESSION: 1. No change in the subcentimeter pulmonary nodules that were described on 01/15/2024. Largest nodule is 5 mm. Indeterminate solid pulmonary nodule measuring 5 mm. In a high-risk patient with a solid nodule <6 mm , CT at 12 months is optional with stronger consideration if there is suspicious nodule morphology an d/or upper lobe location. 2. No mediastinal or hilar adenopathy.
[2024-02-08 12:03] LABS: Add Urine Microscopic? YES; Bilirubin Urine Neg (Negative); Blood Urine 2+ (Negative); Glucose Urine UA Norm (Normal); Ketones Urine Negative (Negative); Leukocyte Esterase Urine Negative (Negative); Nitrate Urine Negative (Negative); Protein Urine Neg (Negative); Urine Appearance Clear (CLEAR); Urine Color Yellow (Yellow); Urobilinogen Urine Norm (Negative); pH Urine 6 (5-7)
[2024-02-08 12:04] LABS: RBC Urine 0-4 /hpf (0-2); Squamous Epithelial Cell Urine 0-4 /hpf (0-5)
[2024-02-08 12:05] LABS: Add Urine Culture? No; Bacteria Urine TRACE /hpf
[2024-02-08] MEDS: iohexol 350 mg/mL 500 mL Btl (per mL) IV (12:28)
== END 2024-02-08 11:24 | disposition home or self-care (01) ==
LOC: RAD 11:32
PROVIDERS: Absent Provider Family Medicine; PCP Nurse Practitioner Family; Visit Provider Nurse Practitioner Family
DX: Z01.818 Encounter for other preprocedural examination (principal); R91.8 Other nonspecific abnormal finding of lung field
CPT/HCPCS: 71260; 81001; Q9967

== ENCOUNTER 2024-02-11 11:55 | Day surgery (SDC) | payer MEDICAID, SELFPAY ==
[2024-02-11] VITALS (9 sets, daily range): BP systolic 94–130; BP diastolic 58–81; PULSE 89–114; RESP 16–25; TEMP 36.5–36.7; O2SAT 93–98; BMI 41.5
[2024-02-11 12:16] LABS: OR HCG Qualitative Urine Negative (Negative)
[2024-02-11] MEDS: sodium chloride 0.9% 1,000 ML 30 ML IV (12:32)
--- NOTE | 2024-02-11 13:38 | ANES.PREANE2 ---
Pre-Anesthetic Assessment Height/Weight: Height 1.55 m Weight 99.79 kg O2 Del Method Room Air 02/11/24 12:26 Preop Diagnosis: Lumbar stenosis with neurogenic claudication Operation Date: 02/11/24 13:25 Proposed Procedures p Lumbar Spine Decompression Lumbar Decompression(Not Applicable) - Rob Chaves, DO Familial anesthetic complications: None Was Beta Ngoc taken within 24 hours: N/A Was Clonidine taken within 24 hours: N/A Last intake: Intake Last Liquid Date 02/11/24 Last Liquid Time 07:00 Last Solid Date 02/10/24 Last Solid Time 22:00 Social Tobacco and No alcohol Exam alert, oriented x 3, clear to auscultation bilaterally and regular rate & rhythm Airway Mallampati: Class III Dentition: false Pulmonary Exertional Dyspnea GI Gastroesophageal Reflux Disease Anesthetic Plan ASA status: 2 Anesthesia: General Risk of > 500 ml blood loss (7ml/kg in children): No Medications/Allergies Home Medications Medication Instructions Recorded Confirmed Last Taken Type naproxen 500 mg tablet 500 mg PO Q12H PRN pain #20 tabs 01/10/24 02/08/24 02/08/24 Rx baclofen 10 mg tablet 10 mg PO BID PRN Pain 02/08/24 02/08/24 02/09/24 History omeprazole magnesium 20 mg 20 mg PO DAILY 02/08/24 02/08/24 02/09/24 History tablet,delayed release varenicline 0.5 mg (11)-1 mg (42) 1 ea PO DIRECTED 02/08/24 02/08/24 02/10/24 History tablets in a dose pack Allergies Allergy/AdvReac Type Severity Reaction Status Date / Time atomoxetine [From Strattera] Allergy vertigo Verified 02/08/24 10:33 cefuroxime Allergy vertigo Verified 02/08/24 10:33 topiramate [From Topamax] Allergy Unknown Verified 02/08/24 10:33 Current Medications Generic Name Dose Route Start Last Admin Trade Name Freq PRN Reason Stop Dose Admin Sodium Chloride 1,000 mls @ 30 mls/hr 02/11/24 12:15 02/11/24 12:32 Sodium Chloride 0.9% IV 02/12/24 12:14 30 mls/hr .Q24H XOCHITL Administration PFSH Anesthesia Medical History SOB (shortness of breath) Chest pain Bipolar 1 disorder Depression Family History Grandmother Congenital heart disease Father CAD (coronary artery disease) Social History Smoking and tobacco/nicotine status: current some day tobacco/nicotine user cigarettes Packs smoked per day: 0.5 Years cigarettes smoked: 25 Alcohol intake: current Alcohol intake frequency: 0-2 Drinks per Day Substance/Drug Use: current Female Reproductive History Date of last menstrual period: 01/08/24 Data Anesthesia Cardiac Studies: Echocardiogram 10/30/23 Sestamibi Stress Test (Cardiology) 01/16/24
[2024-02-11] MEDS: fentaNYL 50 mcg/mL INJ 2mL IVP (13:55)
--- NOTE | 2024-02-11 14:50 | W.PM.OPSUD ---
Surgery/Procedure H&P Update DATE OF PROCEDURE: February 11, 2024 DATE H&P PERFORMED: 02/08/24 H&P UPDATE INFORMATION: I have reviewed H&P completed within last 30 days, I have examined patient prior to procedure and No changes to prior documentation PREOP DIAGNOSIS: Lumbar stenosis with neurogenic claudication PLANNED PROCEDURE: Operation Date: 02/11/24 13:25 Proposed Procedures p Lumbar Spine Decompression Lumbar Decompression(Not Applicable) - Rob Chaves DO
[2024-02-11] MEDS: clindamycin 600 MG/50 ML PREMIX 100 MG IV (15:11)
[2024-02-11] MEDS: lidocaine-epi 2% PF 1:200,000 20 mL SDV 10 ML INJECTION (15:56)
--- NOTE | 2024-02-11 16:23 | P.OP_ITS ---
Operative Report Date of procedure: February 11, 2024 Pre-op diagnosis: Lumbar stenosis with neurogenic claudication Procedure done: L4-5 laminectomy with partial facetectomy Surgeon: Rob Chaves DO Estimated blood loss (mL): 10 Procedure: L4-5 laminectomy with partial facetectomy Patient is brought to the operative suite. After undergoing anesthesia they are placed in the prone position. All areas of impingement are well padded. Patient is then prepped and draped in the normal sterile fashion. A skin incision is made over the L4-5 level. This is confirmed under c-arm guidance. A series of dilators are passed and the tubular retractor is docked on the L4 lamina. A bovie is used to clear the soft tissue off the lamina and the L 4/5 facet joint. A high speed mya is then used to perform the laminectomy and take down the medial aspect of the L 4/5 facet joint. A kerrison rongeure was then used to take down the remaining lamina and smooth the edge of the laminectomy up to the point where the ligamentum flavum attaches. Attention was then brought to the medial aspect of the facet joint. The re maining medial aspect of the superior and inferior aspect of the facet joint were taken down with the kerrison from the pedicle of L4 to L 5. The facet joint had significant hypertrophy. Attention was then brought to the Ligamentum Flavum. The ligament was taken down from the lamina of L4 to L5 and out medially to the remaining facet joint. The ligament was thick. The dura was then exposed. The dura was in good repair. The L4 nerve was then traced with a curette out the L4/5 foramen and found to be adequately decompressed. The L5 nerve was traced with a curette around the L5 pedicle. The lateral recess was opened with a kerrison helping to further decompress the L5 nerve. Wound is then irrigated copiously with saline and surgiflo is used to stop any bleeding. The tubular retractor is removed and the wound is closed with vicryl and monocryl suture. Glue is then used to protect the wound. A sterile dressing is then placed. Patient was then placed in the supine position and transferred to the PACU in stable condition.
--- NOTE | 2024-02-11 16:34 | XR_ITS ---
WS: [id number] C-ARM RADIOGRAPHS LUMBAR SPINE; 2 IMAGES HISTORY: OR PICS COMPARISON: None available. Intraoperative imaging during spinal decompression surgery. Single level is marked. IMPRESSION: Intraoperative imaging during spinal decompression surgery.
--- NOTE | 2024-02-11 16:45 | SUR.PHASEII ---
Patient awake in PACU, on room air. asking questions. O2sat is 94%. dressing is dry and intact. Patient coughing and says she feels SOB. Nasal cannula placed on patient with sats to 96%.
[2024-02-11] MEDS: HYDROmorphone 1 mg/mL INJ 1 mL 0.5 MG IVP (16:53)
[2024-02-11] MEDS: HYDROcodone-acetaminophen 5-325 mg Tablet 1 TAB PO (17:27)
--- NOTE | 2024-02-11 17:45 | ANE.PACU2 ---
Inpatient post-anesthesia follow up: Airway intact: Yes Vital signs: Temperature 97.7 F Pulse Rate 89 Respiratory Rate 16 Blood Pressure 125/81 Pulse Oximetry 97 Oxygen Delivery Me thod Room Air Oxygen Flow Rate 2 Fraction of Inspir ed Oxygen Hydration adequate: Yes Nausea and vomiting: No Pain level: 1 Mental status: Baseline
== END 2024-02-11 17:49 | disposition home or self-care (01) ==
PROVIDERS: Anesthesiology; PCP Nurse Practitioner Family; Visit Provider Orthopaedic Surgery
PROC: (CPT 63005; principal; 2024-02-11 13:25)
DX: M48.062 Spinal stenosis, lumbar region with neurogenic claudication (principal); F17.210 Nicotine dependence, cigarettes, uncomplicated
CPT/HCPCS: 63047; 72100; 76000; 81025; 84703; J1100; J1170; J2250; J2405; J2704; J3010; J3490; J3535; J7030

== ENCOUNTER 2024-02-15 17:45 | Emergency (ER) | payer MEDICAID, SELFPAY ==
[2024-02-15 17:46] VITALS: BP 149/87; PULSE 98; RESP 17; TEMP 36.7; O2SAT 100
--- NOTE | 2024-02-15 18:12 | W.ED.GENADLT ---
Documented by User: ANAHI Herndon 02/15/24 19:24 HPI - General Adult General: Chief complaint: General Medical Stated complaint: back pains , left side numbness , abd pain Time Seen by Provider: 02/15/24 17:57 Source: patient Mode of arrival: wheelchair Limitations: no limitations History of Present Illness: Patient is a 48-year-old female presenting to the emergency department complaining of low back pain and left-sided numbness since Sunday. Patient had a lumbar decompression performed, and notes that since then she has had some worsening numbness to her left leg and left arm. She is also noting some swelling of her bilateral lower extremities as well as pain to her tailbone. She notes some incontinence of urine and bowel, however does not elaborate on this and just states that she has not been able to use the bathroom normally since the surgery. She states she was given Vicodin for pain, though this is not giving her much relief. She does report that it has been painful to ambulate and now it is to the point where she is unable to due to the numbness in her left lower extremity. Onset (ago): day(s) Location: back, left, upper extremity and lower extremity Severity: severe Pain Consistency: constant Relieving factors: none Exacerbating factors: movement Associated symptoms: Deny chest pain, dyspnea, headache(s), nausea, rash, palpitations or vomiting Treatments prior to arrival: other (Vicodin) Review of Systems General: Reports: 10 or more systems reviewed and unremarkable except in HPI and below Const: Denies: fever(s), chills or fatigue Eyes: Denies: change in vision ENMT: Denies: throat pain, ear or mastoid pain or nasal discharge Card: Denies: chest pain, palpitations, swelling of feet/ankles or lightheadedness Resp: Denies: dyspnea, productive cough or wheezing GI: Denies: abdominal pain, nausea, vomiting, diarrhea or constipation : Denies: flank pain, difficulty voiding, dysuria or urinary frequency Musc: Reports: back pain, extremity pain and extremity swelling; Denies: neck pain or joint pain Skin/Breast: Denies: rash Neuro: Reports: numbness in extremities, weakness in extremities and other (Bowel/bladder incontinence); Denies: headache(s) PFS ED PFSH: Medical History SOB (shortness of breath) Chest pain Bipolar 1 disorder Depression Family History Grandmother Congenital heart disease Father CAD (coronary artery disease) Social History Smoking and tobacco/nicotine status: current some day tobacco/nicotine user cigarettes Packs smoked per day: 0.5 Years cigarettes smoked: 25 Alcohol intake: current Alcohol intake frequency: 0-2 Drinks per Day Substance/Drug Use: current Physical Exam Const: COMMON NORMALS: patient oriented x3 and no limitations GENERAL APPEARANCE: cooperative, in distress (From pain) and anxious NUTRITIONAL APPEARANCE: obese morbidly obese ORIENTATION/CONSCIOUSNESS: Yes awake, Yes oriented to person, Yes oriented to place and Yes oriented to time HENMT: COMMON NORMALS: normocephalic, atraumatic, hearing grossly normal bilaterally and Normal external nose present HEAD & SCALP: normocephalic and atraumatic NOSE: Normal external nose present Eye: COMMON NORMALS: Equal, round and reactive pupils present, EOMs intact bilaterally and conjunctivae normal CONJUNCTIVA: Yes conjunctivae normal PUPIL: Yes Equal, round and reactive pupils present Neck/C-Spine: COMMON NORMALS: full ROM, no lymphadenopathy and supple GENERAL: Yes normal visual inspection Chest: COMMONS NORMALS: normal inspection of the chest Resp: COMMON NORMALS: normal respiratory effort, No retractions, No use of accessory muscles and clear to auscultation bilaterally AUSCULTATION: clear to auscultation bilaterally Cardio: COMMON NORMALS: regular rate, regular rhythm and Peripheral pulses 2+ throughout RATE: regular rate RHYTHM: regular rhythm PERIPHERAL PULSES: Peripheral pulses 2+ throughout GI: COMMON NORMALS: Normal to inspection, nondistended, normoactive bowel sounds present and non-tender Back/Pelvis: OTHER: Postoperative incision healing well. Otherwise the thoracic and lumbar spine are normal to inspection. She does report some tenderness to palpation about the lower lumbar/sacral region. Some paralumbar tenderness to palpation. No bruising or edema. No signs of trauma. Extremity: COMMON NORMALS: normal to inspection and full ROM NARRATIVE EXTREMITY EXAM: No significant edema of the lower extremities. She has good strength bilaterally. She does report some diminished sensation to the left lower extremity, though her deep tendon reflexes are intact. Normal pulses. Very antalgic due to pain, limited exam in terms of active and passive range of motion. Neuro: COMMON NORMALS: patient oriented x3, CN's II-XII intact bilaterally, moves all extremities, no focal motor deficits and deep tendon reflexes 2+ bilaterally SENSORIUM/ORIENTATION: Yes oriented to person, Yes oriented to place and Yes oriented to time MOTOR EXAM: 5/5 motor strength present throughout, Motor fasciculations not present, Normal motor muscle tone present throughout and Motor abnormalities not present Skin: COMMON NORMALS: no rashes or lesions noted GENERAL SKIN EXAM: no rashes or lesions noted Course Vital Signs: Vital signs: Vital Signs Temperature 98.1 F 02/15/24 17:46 Pulse Rate 98 02/15/24 17:46 Respiratory Rate 17 02/15/24 17:46 Blood Pressure 149/87 02/15/24 17:46 Pulse Oximetry 100 02/15/24 17:46 Oxygen Delivery Me thod Room Air 02/15/24 17:46 MDM - General Adult Medical Decision Making This patient was seen for postoperative pain and numbness. She had decompression surgery on Sunday, and notes that the symptoms have been present since. She did report to me history of sciatica and states that these findings feel similar. She has been taking hydrocodone for her pain, notes that this has not been helping all that much. She did report to me some bowel and bladder incontinence, however did not specify in this and later clarified that she has just been having infrequent bowel movements since. Her primary concern is the pain. Examination showed some tenderness to palpation about the lower spine and paralumbar region. She did not demonstrate any deficits in strength, and other than some diminished sensation to light touch of the left lower extremity, I had no concerns for any acute neurological compromise. She did transfer from wheelchair to bed on her own, though with significant pain reported. I gave her a dose of IV morphine and Decadron, and upon recheck states that she felt much better. I spoke with her surgeon, Dr. Chaves, to inform of patient's case and current findings. He states that she can begin a course of steroids and follow-up with him next week, noting that these findings are not abnormal postoperatively. I informed patient of this, and she agrees and is ready to go home. I did have a thorough conversation with her in regards to reasons to return, such as worsening or overt loss of bowel or bladder function. Other return precautions given and patient will be discharged home. No radiology studies performed this visit Discharge Plan Discharge Patient Disposition: Home Clinical Impression: Post-op pain, Numbness on left side Condition: Stable Prescriptions: New prednisone 20 mg tablet 60 mg PO ONCE 5 Days Qty: 15 0RF hydrocodone-acetaminophen 5-325 mg tablet 1 tab PO Q6H PRN (Reason: pain) Qty: 14 0RF No Action omeprazole magnesium 20 mg tablet,delayed release (DR/EC) 20 mg PO DAILY varenicline 0.5 mg (11)- 1 mg (42) tablets,dose pack 1 ea PO DIRECTED baclofen 10 mg tablet 10 mg PO BID PRN (Reason: Pain) naproxen 500 mg tablet 500 mg PO Q12H PRN (Reason: pain) Qty: 20 0RF hydrocodone-acetaminophen 5-325 mg tablet 1 - 2 tab PO .Q4-6H Qty: 40 0RF Discharge Orders: Discharge ED (Routine); Ordered 02/15/24 Ordered By: Adarsh Campo Referrals: Lisandra Rae FNP [Primary Care Provider] - Discharge Diet: Usual diet Discharge Activity: Increase activity as tolerated Patient Instructions: Opioid Safety, Pain Management, Post Operative Pain Activity Restrictions/Additional Instructions: Prednisone as prescribed. Take pain medications as needed. Follow-up with Dr. Salgado next week. Return if you have any new or concerning symptoms. Gentle range of motion exercises as tolerated. Coding Level of Care Code ED Standard Machine Stitcher for Chg Fwd Documented by User: Richard Peralta DO 02/19/24 09:48 HPI - General Adult General: Chief complaint: General Medical Stated complaint: back pains , left side numbness , abd pain Time Seen by Provider: 02/15/24 17:57 PFSH ED PFSH: Medical History SOB (shortness of breath) Chest pain Bipolar 1 disorder Depression Family History Grandmother Congenital heart disease Father CAD (coronary artery disease) Social History Smoking and tobacco/nicotine status: current some day tobacco/nicotine user cigarettes Packs smoked per day: 0.5 Years cigarettes smoked: 25 Alcohol intake: current Alcohol intake frequency: 0-2 Drinks per Day Substance/Drug Use: current Course Vital Signs: Vital signs: Vital Signs Temperature 98.1 F 02/15/24 17:46 Pulse Rate 98 02/15/24 17:46 Respiratory Rate 17 02/15/24 17:46 Blood Pressure 149/87 02/15/24 17:46 Pulse Oximetry 100 02/15/24 17:46 Oxygen Delivery Me thod Room Air 02/15/24 17:46 MDM - General Adult Medical Decision Making This patient was seen for postoperative pain and numbness. She had decompression surgery on Sunday, and notes that the symptoms have been present since. She did report to me history of sciatica and states that these findings feel similar. She has been taking hydrocodone for her pain, notes that this has not been helping all that much. She did report to me some bowel and bladder incontinence, however did not specify in this and later clarified that she has just been having infrequent bowel movements since. Her primary concern is the pain. Examination showed some tenderness to palpation about the lower spine and paralumbar region. She did not demonstrate any deficits in strength, and other than some diminished sensation to light touch of the left lower extremity, I had no concerns for any acute neurological compromise. She did transfer from wheelchair to bed on her own, though with significant pain reported. I gave her a dose of IV morphine and Decadron, and upon recheck states that she felt much better. I spoke with her surgeon, Dr. Chaves, to inform of patient's case and current findings. He states that she can begin a course of steroids and follow-up with him next week, noting that these findings are not abnormal postoperatively. I informed patient of this, and she agrees and is ready to go home. I did have a thorough conversation with her in regards to reasons to return, such as worsening or overt loss of bowel or bladder function. Other return precautions given and patient will be discharged home. Chart reviewed Discharge Plan Discharge Patient Disposition: Home Clinical Impression: Post-op pain, Numbness on left side Condition: Stable Prescriptions: New prednisone 20 mg tablet 60 mg PO ONCE 5 Days Qty: 15 0RF hydrocodone-acetaminophen 5-325 mg tablet 1 tab PO Q6H PRN (Reason: pain) Qty: 14 0RF No Action omeprazole magnesium 20 mg tablet,delayed release (DR/EC) 20 mg PO DAILY varenicline 0.5 mg (11)- 1 mg (42) tablets,dose pack 1 ea PO DIRECTED baclofen 10 mg tablet 10 mg PO BID PRN (Reason: Pain) naproxen 500 mg tablet 500 mg PO Q12H PRN (Reason: pain) Qty: 20 0RF hydrocodone-acetaminophen 5-325 mg tablet 1 - 2 tab PO .Q4-6H Qty: 40 0RF Discharge Orders: Discharge ED (Routine); Ordered 02/15/24 Ordered By: Adarsh Campo Referrals: Lisandra Rae FNP [Primary Care Provider] - Discharge Diet: Usual diet Discharge Activity: Increase activity as tolerated Patient Instructions: Opioid Safety, Pain Management, Post Operative Pain Activity Restrictions/Additional Instructions: Prednisone as prescribed. Take pain medications as needed. Follow-up with Dr. Saglado next week. Return if you have any new or concerning symptoms. Gentle range of motion exercises as tolerated. Coding Level of Care Code ED Standard Machine Stitcher for Charis Ferrera
[2024-02-15] MEDS: dexamethasone 10 mg/mL INJ 8 MG IVP (18:18)
[2024-02-15] MEDS: morphine 4 mg/mL SDV 1 mL IVP (18:23)
== END 2024-02-15 19:14 | disposition home or self-care (01) ==
PROVIDERS: Emergency Provider Physician Assistant; PCP Nurse Practitioner Family
DX: G89.18 Other acute postprocedural pain (principal); R20.0 Anesthesia of skin; F17.210 Nicotine dependence, cigarettes, uncomplicated
CPT/HCPCS: 96374; 96375; 99285; J1100; J2270

== ENCOUNTER 2024-03-16 07:30 | Emergency (ER) | payer MEDICAID, SELFPAY ==
[2024-03-16 07:37] VITALS: BP 130/87; PULSE 90; TEMP 36.7; O2SAT 98
--- NOTE | 2024-03-16 07:41 | XRR_ITS ---
PROCEDURE INFORMATION: Exam: XR Cervical Spine Exam date and time: 03/16/2024 7:53 AM Age: 48 years old Clinical indication: Injury or trauma; Fall; Blunt trauma TECHNIQUE: Imaging protocol: Radiologic exam of the cervical spine. Views: 2 or 3 views. COMPARISON: CT chest w con* [id number] 02/08/2024 12:17 PM FINDINGS: Bones/joints: Cervical spine is visualized from the base of the skull to C4 level on the lateral radiograph. No compression deformity. No spondylolisthesis. Multilevel bilateral facet joint arthropathy, most pronounced on the left side at C4-C5. Soft tissues: Unremarkable. XR/XR cervical spine 3V* [id number] IMPRESSION: No acute fracture or dislocation.
--- NOTE | 2024-03-16 07:42 | ED_ITS ---
HPI - Back Pain/Injury General: Chief Complaint: Back Pain/Injury Stated Complaint: neck pain Time Seen by Provider: 03/16/24 07:33 Source: patient Mode of arrival: ambulatory Limitations: no limitations History of Present Illness: 48-year-old female states she fell out o f her bed on Sunday states she has had increasing neck pain since then states it is along the sides of her neck denies any midline pain states it is worse with movement improved with rest she rates her pain a 7 out of 10 currently denies any headache or head injury denies any other injuries from the fall Associated symptoms: Deny abdominal pain, chills, fever(s), nausea or vomiting Review of Systems Const: Denies: fever(s), chills, body aches or change in appetite ENMT: Denies: throat pain or dental pain Card: Denies: chest pain Resp: Denies: dyspnea GI: Denies: abdominal pain, nausea, vomiting or diarrhea Musc: Reports: neck pain; Denies: back pain Neuro: Denies: headache(s) PFSH ED PFSH: Medical History SOB (shortness of breath) Chest pain Bipolar 1 disorder Depression Family History Grandmother Congenital heart disease Father CAD (coronary artery disease) Social History Smoking and tobacco/nicotine status: current some day tobacco/nicotine user cigarettes Packs smoked per day: 0.5 Years cigarettes smoked: 25 Alcohol intake: current Alcohol intake frequency: 0-2 Drinks per Day Substance/Drug Use: current Physical Exam Const: COMMON NORMALS: no acute distress, patient oriented x3 and healthy appearing HENMT: COMMON NORMALS: normocephalic and atraumatic HEAD & SCALP: normocephalic and atraumatic Eye: COMMON NORMALS: conjunctivae normal CONJUNCTIVA: Yes conjunctivae normal Neck/C-Spine: COMMON NORMALS: full ROM and supple OTHER: No midline tenderness on exam does have paraspinal tenderness Chest: COMMONS NORMALS: normal inspection of the chest Resp: COMMON NORMALS: normal respiratory effort Extremity: COMMON NORMALS: normal to inspection and full ROM Neuro: COMMON NORMALS: patient oriented x3, moves all extremities and no focal motor deficits Psych: COMMON NORMALS: mental status grossly normal, Normal thought process present and cooperative THOUGHT PROCESS: Normal thought process present Skin: COMMON NORMALS: no rashes or lesions noted and no wounds GENERAL SKIN EXAM: no rashes or lesions noted Course Vital Signs: Vital signs: Vital Signs Temperature 98.0 F 03/16/24 07:37 Pulse Rate 90 03/16/24 07:37 Blood Pressure 130/87 03/16/24 07:37 Pulse Oximetry 98 03/16/24 07:37 MDM - Back Pain/Injury Medical Decision Making Patient presents with a neck strain she has no midline tenderness no signs of any major injury she stable for discharge she is follow-up with PCP return if worsening she understands agrees to plan Medical Records I reviewed the patient's medical records. Labs Radiology Impressions Cervical Spine X-Ray 03/16/24 07:41 IMPRESSION: No acute fracture or dislocation. All radiology interpretation(s) finalized by discharge Discharge Plan Discharge Patient Disposition: Home Clinical Impression: Cervical strain Condition: Stable Prescriptions: New methocarbamol 750 mg tablet 750 mg PO Q6H PRN (Reason: spasms) Qty: 20 0RF Naprosyn 500 mg tablet 500 mg PO BID PRN (Reason: pain) Qty: 20 0RF No Action omeprazole magnesium 20 mg tablet,delayed release (DR/EC) 20 mg PO DAILY varenicline 0.5 mg (11)- 1 mg (42) tablets,dose pack 1 ea PO DIRECTED baclofen 10 mg tablet 10 mg PO BID PRN (Reason: Pain) naproxen 500 mg tablet 500 mg PO Q12H PRN (Reason: pain) Qty: 20 0RF hydrocodone-acetaminophen 5-325 mg tablet 1 tab PO Q6H PRN (Reason: pain) Qty: 14 0RF hydrocodone-acetaminophen 5-325 mg tablet 1 - 2 tab PO .Q4-6H Qty: 40 0RF Discharge Orders: Discharge ED (Routine); Ordered 03/16/24 Ordered By: Chadwick Sorto Referrals: Lisandra Rae FNP [Primary Care Provider] - Discharge Diet: Advance as tolerated Discharge Activity: Resume usual activity Patient Instructions: Cervical Strain (ED) Coding Level of Care Code ED Drill Press Set Up Operator for Charis Ferrera
[2024-03-16] MEDS: methocarbamol 750 mg Tablet 1500 MG PO (07:58)
[2024-03-16] MEDS: ketorolac 60 mg/2 mL INJ IM (08:04)
[2024-03-16 08:29] VITALS: BP 134/88; O2SAT 98
== END 2024-03-16 08:31 | disposition home or self-care (01) ==
PROVIDERS: Emergency Provider Emergency Medicine; PCP Nurse Practitioner Family
DX: S16.1XXA Strain of muscle, fascia and tendon at neck level, initial encounter (principal); F17.210 Nicotine dependence, cigarettes, uncomplicated; W06.XXXA Fall from bed, initial encounter
CPT/HCPCS: 72040; 96372; 99284; J1885

== ENCOUNTER → 2024-12-02 15:20 | Outpatient (BNVA) | payer MEDICAID, SELFPAY | PROVIDERS: PCP Nurse Practitioner Family; Visit Provider Orthopaedic Surgery | DX: M48.062 Spinal stenosis, lumbar region with neurogenic claudication (principal); M54.50 Low back pain, unspecified; M79.604 Pain in right leg; M79.605 Pain in left leg | CPT/HCPCS: 72100 ==

== ENCOUNTER 2024-12-24 11:04 | Outpatient (CLI) | payer MEDICAID, SELFPAY ==
--- NOTE | 2024-12-24 11:00 | MR_ITS ---
WS: [id number] MRI OF THE PELVIS WITHOUT GADOLINIUM ENHANCEMENT INDICATION: Sacral pain after fall TECHNIQUE: Coronal T1 and STIR axial T1 and T2 incisional T2 fat-sat FINDINGS: Hemorrhagic LEFT ovarian cyst with fluid-fluid level measuring 2.6 x 2.2 cm. Anteverted uterus. Nabothian cysts in the cervix. Lobulated uterine fundus suspicious for a submucosal uterine fibroid measuring 1.9 cm. This can be followed up with ultrasound. Normal bone marrow signal in the bony pelvis and sacrum. Normal pubic rami. Small amount of edema and cortical irregularity involving the mid coccyx suspicious for subacute healing fracture. Small amount of associated soft tissue edema about the coccyx. Proximal femurs are normal in appearance. Few sigmoid diverticuli. No inguinal lymphadenopathy. MR/MR pelvis wo con* [id number] IMPRESSION: 1. Cortical irregularity in the mid coccyx compatible with a healing subacute fracture. No significant displacement. Suspected surrounding callus formation. Associated soft tissue edema about the coccyx. 2. Normal bone marrow signal in the sacrum. 3. SHOP GIRL findings described above.
== END 2024-12-24 11:05 | disposition home or self-care (01) ==
PROVIDERS: PCP Nurse Practitioner Family; Visit Provider Orthopaedic Surgery
DX: M53.3 Sacrococcygeal disorders, not elsewhere classified (principal); R93.7 Abnormal findings on diagnostic imaging of other parts of musculoskeletal system; R93.89 Abnormal findings on diagnostic imaging of other specified body structures; N88.8 Other specified noninflammatory disorders of cervix uteri; K57.30 Diverticulosis of large intestine without perforation or abscess without bleeding
CPT/HCPCS: 72195

== ENCOUNTER → 2025-05-14 15:37 | Outpatient (BNVA) | payer MEDICAID, SELFPAY | PROVIDERS: PCP Nurse Practitioner Family; Visit Provider Orthopaedic Surgery | DX: S32.10XA Unspecified fracture of sacrum, initial encounter for closed fracture (principal); M48.062 Spinal stenosis, lumbar region with neurogenic claudication; M54.2 Cervicalgia | CPT/HCPCS: 72220 ==

== ENCOUNTER 2025-05-28 12:35 | Outpatient (CLI) | payer MEDICAID, SELFPAY ==
--- NOTE | 2025-05-28 13:00 | MR_ITS ---
WS: [id number] MRI CERVICAL SPINE NONCONTRAST TECHNIQUE: Sagittal T1, T2 and STIR imaging. Axial T2, gradient, and fiesta imaging. CLINICAL INFORMATION: Neck Pain COMPARISON: None. FINDINGS: Straightening of the normal cervical lordosis. Central disc protrusions at C2- C3, C3-C4 C5-C6 and C6-C7. Cord signal is normal. C2-C3: Advanced RIGHT facet arthropathy with para-articular edema compatible with synovitis. Shallow central disc protrusion. Mild central canal stenosis. Moderate RIGHT foraminal narrowing. C3-C4: Shallow central disc protrusion. Mild central canal stenosis. Moderate facet arthropathy. Moderate RIGHT greater than LEFT bony foraminal narrowing. C4-C5: Mild disc bulging. Moderate to advanced facet arthropathy worse on the LEFT. Mild central canal stenosis. Moderate to severe LEFT and moderate RIGHT bony foraminal narrowing. C5-C6: Disc osteophyte complex eccentric to the LEFT. Severe LEFT and moderate RIGHT bony foraminal narrowing. Mild central canal stenosis. Mild facet arthropathy. C6-C7: Mild central canal stenosis. Mild bilateral foraminal narrowing. C7-T1: Normal. Visualized brain stem structures: Normal. Prevertebral soft tissues: Normal. MR/MR cervical spin wo con* [id number] IMPRESSION: Some images degraded by motion. 1. Straightening of normal cervical lordosis with congenital spinal canal narr owing. 2. Mild central canal stenosis with small central protrusions at C2-3, C3-4, C 4-5, C5-6, and C6-7. 3. RIGHT C2-3 facet synovitis and periarticular edema with advanced RIGHT face t arthropathy. 4. Mild LEFT C4-5 facet synovitis. 5. Moderate to severe LEFT C4-5 and severe LEFT C5-6 bony foraminal narrowing.
--- NOTE | 2025-05-28 13:45 | MR_ITS ---
WS: [id number] MRI THORACIC SPINE WITHOUT CONTRAST TECHNIQUE: Sagittal T1, T2 and STIR imaging. Axial T2 imaging. Noncontrast imaging obtained. CLINICAL INFORMATION: Back Pain COMPARISON: None. FINDINGS: Mild congenital central canal stenosis. Prominent dorsal epidural fat. Mild thoracic curve. No acute compression. Disc space heights and vertebral body heights are relatively well-maintained. Few small disc protrusions most prominent at T6-T7 and T9-T10. RIGHT paracentral protrusion at T9-T10 with mild central canal stenosis and slight contact of the RIGHT ventral thoracic cord. Moderate facet arthropathy lower thoracic spine. Moderate RIGHT T10-11 bony foraminal narrowing. Small ovoid T2 hyperintense lesion at the T5 level abutting the costovertebral junction and T5 vertebral body. This is nonspecific but may represent a small schwannoma or nerve sheath tumor but technically indeterminate. This measures approximately 8.4 x 12.2 mm. This can be followed up with gadolinium. Normal caliber thoracic aorta. Adrenal glands are normal. Small esophageal hiatal hernia. MR/MR thoracic spin wo con* [id number] IMPRESSION: 1. Mild congenital central canal stenosis. Prominent dorsal epidural fat. 2. No acute compression fractures. 3. RIGHT paracentral protrusion T9-T10 with mild central canal stenosis and sl ight contact of the RIGHT ventral thoracic cord. 4. Moderate RIGHT T10-11 foraminal narrowing. 5. Tiny shallow central protrusion T6-7. 6. Cord signal is normal. 7. Small ovoid T2 hyperintense lesion at the T5 level abutting the costoverteb ral junction and T5 vertebral body. This is indeterminant but may represent a s mall schwannoma or nerve sheath tumor but technically indeterminate. This measu res approximately 8.4 x 12.2 mm. This can be followed up with gadolinium.
--- NOTE | 2025-05-28 14:30 | MR_ITS ---
WS: [id number] MRI LUMBAR SPINE NONCONTRAST TECHNIQUE: Sagittal T1, T2 and STIR imaging. Axial T1 and T2 imaging. CLINICAL INFORMATION: Back Pain COMPARISON: MRI 2022 FINDINGS: Counting performed from the craniocervical junction. 4 lumbar type vertebral bodies. First sacral segment considered L5. Recommend plain film correlation prior to surgical intervention L1-L2: Mild facet arthropathy. L2-L3: Mild annular bulging. Moderate facet arthropathy. Mild RIGHT foraminal narrowing. L3-L4: Mild annular bulging. Advanced LEFT facet arthropathy. Mild LEFT foraminal narrowing. RIGHT foramen is patent. Prior postoperative changes laminectomies. Central canal stenosis has improved with mild residual narrowing of the subarticular recess bilaterally. L4-L5: Mild annular bulging. Advanced facet arthropathy. Mild RIGHT foraminal narrowing. LEFT foramen is patent. L5-S1: First sacral segment considered L5 for the purposes of this dictation. This also is in keeping with the prior numbering convention from 2022. No significant disc bulging at this level. Visualized pelvic bony structures: Normal. Paravertebral soft tissues: Normal. Partially visualized LEFT adnexal cyst measuring 2.1 cm. Nabothian cysts along the cervix. MR/MR lumbar spine wo con* [id number] IMPRESSION: 1. Counting performed from the craniocervical junction. 4 lumbar type vertebra l bodies. First sacral segment considered L5. Recommend plain film correlation prior to surgical intervention 2. Interval laminectomies L3-4 with spinal canal decompression. Central canal stenosis has improved with mild residual narrowing of the subarticular recess. 3. Mild LEFT L3-4 foraminal narrowing with advanced LEFT facet arthropathy. Sl ight contact of the exiting LEFT L3 nerve root. 4. Mild annular bulging L2-3 with slight narrowing of the RIGHT subarticular r ecess and mild RIGHT foraminal narrowing similar to previous. 5. Advanced facet arthropathy L4-5 with mild synovitis. 6. Mild RIGHT L4-5 foraminal narrowing.
== END 2025-05-28 12:36 | disposition home or self-care (01) ==
PROVIDERS: PCP Nurse Practitioner Family; Visit Provider Orthopaedic Surgery
DX: M47.892 Other spondylosis, cervical region (principal); M47.896 Other spondylosis, lumbar region; M51.24 Other intervertebral disc displacement, thoracic region; M99.62 Osseous and subluxation stenosis of intervertebral foramina of thoracic region; M25.78 Osteophyte, vertebrae
CPT/HCPCS: 72141; 72146; 72148

== ENCOUNTER → 2025-06-02 14:08 | Outpatient (BNVA) | payer MEDICAID, SELFPAY | PROVIDERS: PCP Nurse Practitioner Family; Visit Provider Orthopaedic Surgery | DX: M54.9 Dorsalgia, unspecified (principal); Z09 Encounter for follow-up examination after completed treatment for conditions other than malignant neoplasm; Z01.818 Encounter for other preprocedural examination; M50.021 Cervical disc disorder at C4-C5 level with myelopathy; M50.022 Cervical disc disorder at C5-C6 level with myelopathy | CPT/HCPCS: 36415; 72072; 80053; 81001; 85025; 87077; 87086; 87186 ==

== ENCOUNTER → 2025-06-10 09:22 | Outpatient (BNVA) | payer MEDICAID, SELFPAY | PROVIDERS: PCP Nurse Practitioner Family; Visit Provider Family Medicine | DX: Z01.818 Encounter for other preprocedural examination (principal) | CPT/HCPCS: 81003; 87086 ==

== ENCOUNTER 2025-06-17 12:18 | Day surgery (SDC) | payer MEDICAID, SELFPAY ==
[2025-06-17] VITALS (10 sets, daily range): BP systolic 129; BP diastolic 81; PULSE 84–104; RESP 16; TEMP 36.1–37.2; O2SAT 94–100; BMI 41.9
[2025-06-17 15:55] LABS: OR HCG Qualitative Urine Negative (Negative)
--- NOTE | 2025-06-17 16:49 | W.PM.OPSUD ---
Surgery/Procedure H&P Update DATE OF PROCEDURE: June 17, 2025 DATE H&P PERFORMED: 06/02/25 H&P UPDATE INFORMATION: I have reviewed H&P completed within last 30 days, I have examined patient prior to procedure and No changes to prior documentation PREOP DIAGNOSIS: Cervical stenosis with radiculopathy PLANNED PROCEDURE: Operation Date: 06/17/25 14:10 Proposed Procedures p Anterior Cervical Discectomy & Fusion ACDF(Not Applicable) - Rob Chaves DO
--- NOTE | 2025-06-17 21:35 | SUR.PHASEI ---
2135 unable to obtain any blood pressures or respirations due to patients coughing.
--- NOTE | 2025-06-17 22:25 | ANE.PACU2 ---
Inpatient post-anesthesia follow up: Airway intact: Yes Vital signs: Temperature 97.9 F Pulse Rate 89 Respiratory Rate 16 Blood Pressure 129/81 Pulse Oximetry 96 Oxygen Delivery Me thod Room Air Oxygen Flow Rate Fraction of Inspir ed Oxygen Hydration adequate: Yes Nausea and vomiting: No Pain level: 2 Mental status: Baseline Additional Comments: Patient doing well prior to discharge. During procedure patient was having extremely high airway pressures with difficulty moving adequate tidal volumes. SpO2 in the mid 80s at times. Initial 7 oh ETT was placed but this was exchanged for an 8.0. Breathing circuit was also changed out with no change. Fiberoptic bronchoscopy was then performed to verify tube placement as well as evaluate lung status. This appeared to be WNL at the time with ETT right above russel. Decision was made to wake the patient up with plans of further recommendation of referral to pulmonology prior to rescheduling
== END 2025-06-17 22:20 | disposition home or self-care (01) ==
PROVIDERS: PCP Nurse Practitioner Family; Visit Provider Orthopaedic Surgery
DX: Z53.8 Procedure and treatment not carried out for other reasons (principal)
CPT/HCPCS: 81025; J0131; J0169; J0330; J2250; J2704; J3010; J3490; J3535; J7030; J9999

== ENCOUNTER 2025-06-25 16:41 | Outpatient (CLI) | payer MEDICAID, SELFPAY ==
--- NOTE | 2025-06-25 16:45 | CT_ITS ---
WS: [id number] CT CHEST HIGH RESOLUTION, NONCONTRAST. HISTORY: Interstitial lung disease. Difficulty breathing. Technique: High-resolution chest CT is performed in inspiration, expiration, supine and prone positioning. All CT scans at [facility] use at least one of these dose optimization techniques: automated exposure control; mA and/or kV adjustment per patient size (includes targeted exams where dose is matched to clinical indication); or iterative reconstruction. DLP: 1786.51 mGy.cm COMPARISON: 01/15/2024 Findings: Lungs are well aerated. Reidentified are noncalcified 4 mm nodules along the RIGHT minor fissure which are stable since 02/08/2024. There are a few scattered very tiny, micronodules in the periphery of upper lobes. Linear atelectasis in the lingula. There is no honeycombing or bronchiectasis identified. During expiration no air trapping is identified. Symmetric loss in volume of each lung with expiration. Linear atelectasis persists in the lingula on prone imaging. No pneumothorax. No pneumonia. No endobronchial lesions. Airway is patent. Heart is normal size. No mediastinal or hilar adenopathy. No adrenal mass. Mild thoracic spondylitic changes. No destructive bone lesions. CT/CT chest wo con [id number] Impression: 1. No honeycombing or bronchiectasis. 2. Stable noncalcified RIGHT minor fissure nodules since 02/08/2024. 3. There are a few additional very tiny peripheral micronodules. No suspicious masses or nodules. No pneumonia. 4. Normal trachea and bronchi.
--- NOTE | 2025-06-25 16:45 | CT_ITS ---
WS: [id number] CT NECK WITH CONTRAST HISTORY: oxygen lowered during surgery TECHNIQUE: Contiguous 2 mm axial images are performed through the neck with intravenous contrast. Sagittal and coronal reformats are also submitted. All CT scans at [facility] use at least one of these dose optimization techniques: automated exposure control; mA and/or kV adjustment per patient size (includes targeted exams where dose is matched to clinical indication); or iterative reconstruction. CONTRAST: CONTRAST: Omnipaque 350; 100 mL IV. DLP: 200.27 mGy.cm COMPARISON: None available. There is motion artifact during CT acquisition. CT limitation by motion artifact and dental amalgam especially through the nasopharyngeal and oropharyngeal airway. There is distortion of the soft tissues greatest involving the nasopharynx and upper oropharynx. There is a mild symmetric narrowing involving the larynx. At the level of vocal cords there is narrowing of the airway. There is no mass identified or extrinsic pressure on the airway. This extends for short segment at the level of the vocal cords. This is a mild narrowing with the AP diameter measuring 1.7 cm in the transverse diameter 0.6 cm. Torus tubarius and fossa of Rosenmuller are not well visualized due to motion. Numerous lymph nodes are identified in the cervical chains, greatest involving the level 1 and level 2. Normal fatty madalyn. No pathologically enlarged lymph nodes. Thyroid gland and salivary glands are normally enhancing with no masses. Facet joint fusion on the RIGHT at C2-3. Visualized portions of the skull base demonstrate no abnormalities. Orbits and globes are within normal limits. No soft tissue masses. Visualized paranasal sinuses and mastoid air cells are normal. Lung apices are clear. CT/CT neck w con* [id number] IMPRESSION: 1. Smooth, short segment narrowing of the glottis, at the level of the vocal c ords. No extrinsic mass or intrinsic mass identified. This can be seen with kevin or trauma or scarring. This also can be noted with Valsalva maneuver during acq uisition of this exam. Direct visualization of the vocal cords recommended. 2. Limited visualization of the nasopharynx and oropharynx due to motion durin g acquisition and dental amalgam artifact.
[2025-06-25] MEDS: iohexol 350 mg/mL 500 mL Btl (per mL) IV (17:18)
== END 2025-06-25 16:42 | disposition home or self-care (01) ==
LOC: RAD 16:42
PROVIDERS: PCP Nurse Practitioner Family; Visit Provider Internal Medicine
DX: J84.9 Interstitial pulmonary disease, unspecified (principal); R06.02 Shortness of breath; J38.6 Stenosis of larynx; R91.8 Other nonspecific abnormal finding of lung field; J98.11 Atelectasis
CPT/HCPCS: 70491; 71250

== ENCOUNTER 2025-07-09 20:04 | Emergency (ER) | payer MEDICAID, SELFPAY ==
[2025-07-09 20:06] VITALS: BP 121/74; PULSE 107; TEMP 36.4; O2SAT 94
--- NOTE | 2025-07-09 20:27 | XRR_ITS ---
PROCEDURE INFORMATION: Exam: XR Chest Exam date and time: 07/09/2025 9:23 PM Age: 49 years old Clinical indication: Shortness of breath; Additional info: SOB TECHNIQUE: Imaging protocol: Radiologic exam of the chest. Views: 1 view. COMPARISON: CT chest con [id number] 06/25/2025 5:01 PM FINDINGS: Lungs: Unremarkable. No consolidation. Pleural spaces: Unremarkable. No pleural effusion. No pneumothorax. Heart/Mediastinum: Unremarkable. No cardiomegaly. Bones/joints: Unremarkable. XR/XR chest 1V portable [id number] IMPRESSION: No acute findings.
[2025-07-09 21:15] VITALS: PULSE 88; RESP 18; O2SAT 96
[2025-07-09 21:23] LABS: Hematocrit 43.9 % (36-47); Hemoglobin 14.90 g/dL (11.27-16.99); Mean Corpuscular HGB Conc 33.9 g/dL (30-55); Mean Corpuscular Hemoglobin 30.7 pg (27-33); Mean Corpuscular Volume 90.5 fl (85-98); Nucleated Red Blood Cells % 0 %; Platelet Count 294 10^3/cmm (157-399); Red Blood Count 4.85 10^6/uL (3.85-5.65); White Blood Count 9.40 10^3/uL (3.29-11.43)
[2025-07-09 21:31] VITALS: O2SAT 94
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
[2025-07-09 21:39] LABS: Alanine Aminotransferase 17 U/L (0-33); Albumin Level 4.5 g/dL (3.5-5.2); Alkaline Phosphatase 185 U/L (35-105); Anion Gap 17.6 (5-19); Aspartate Amino Transferase 20 U/L (0-32); Blood Urea Nitrogen 10 mg/dL (6-20); Calcium 9.2 mg/dL (8.5-10.5); Carbon Dioxide 22 mmol/L (22-29); Chloride 105 mmol/L (98-107); Creatinine Clr Calc Pharmacy 94.6393; Globulin 3.7 g/dL (1.3-4.6); Glucose 104 mg/dL (65-115); Osmolality Calculated 291 mOsm/kg (285-295); Potassium 3.6 mmol/L (3.5-5.1); Sodium 141 mmol/L (136-145); Total Protein 8.2 g/dL (6.6-8.7)
--- NOTE | 2025-07-09 21:41 | PC.NURSE ---
Pt was angry at the physician. Pt out of room screaming and started yelling at the nurse and surrounding nurses. Pt left without signing paperwork. Pt ripped iv out. Pt cursed at nurse and surrounding nurses. demanded to be let out and called nurse a cunt multiple times and a dirty asshole . Pt made a scene in the lobby to security and said the staff and provider was rude and didn't believe them.
[2025-07-09 21:45] LABS: Procalcitonin 0.02 ng/mL (0-0.5)
--- NOTE | 2025-07-09 22:13 | ECG_ITS ---
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 Measurements Intervals [place] Rate: 99 P: 60 IN: 167 QRS: -6 QRSD: 90 T: 48 QT: 332 QTc: 426 Interpretive Statements SINUS RHYTHM MINIMAL VOLTAGE CRITERIA FOR LVH, CONSIDER NORMAL VARIANT [MEETS CRITERIA IN ONE OF: R(aVL), S(V1), R(V5), R(V5/V6)+S(V1)] POSSIBLE ANTERIOR MYOCARDIAL INFARCTION , PROBABLY OLD [30 ms Q WAVE IN V3/V4, OR R < 0.2 mV IN V4] INTERPRETATION BASED ON A DEFAULT AGE OF 40 YEARS Compared to ECG 07/09/2023 13:50:47 No significant changes Electronically Signed On 07-11-2025 20:24:04 CDT by Rosey Bunn M.D. [email or web address]
== END 2025-07-09 21:51 | disposition left against medical advice (07) ==
PROVIDERS: Student in an Organized Health Care Education/Training Program; Emergency Provider Physician Assistant; PCP Nurse Practitioner Family
DX: R06.02 Shortness of breath (principal); F17.210 Nicotine dependence, cigarettes, uncomplicated
CPT/HCPCS: 36415; 71045; 80053; 84145; 85025; 93005; 99285